=== PATIENT | male | born 1965 | race Caucasian/White ===

== ENCOUNTER 2016-12-02 13:28 | Inpatient (IN) | payer MEDICAID ==
[2016-12-02 14:02] LABS: MEAN CORPUSCULAR HEMOGLOBIN 29.6 pg (26.0-30.0); RED BLOOD COUNT 4.41 Mil/cmm (4.30-5.70)
[2016-12-02 14:04] LABS: HEMATOCRIT 38.9 % (41.0-60); HEMOGLOBIN 13.1 gm/dL (12-16); MEAN CORPUSCULAR HGB CONC 33.6 pg (28.0-36.0); MEAN PLATELET VOLUME 8.3 fl; PLATELET COUNT 342 Th/cmm (150-400); RED CELL DISTRIBUTION WIDTH 13.2 % (11.5-20.0)
[2016-12-02 14:06] LABS: WHITE BLOOD COUNT 18.6 Th/cmm (4.8-10.8)
[2016-12-02 14:11] LABS: INR 1.32 (0.5-1.4); PROTHROMBIN TIME (TEST) 13.9 SECONDS (9.5-11.5)
[2016-12-02 14:15] LABS: ALB/GLOB RATIO 0.7 (1.0-1.8); ALKALINE PHOSPHATASE 84 U/L (34-104); ANION GAP 8.3 (7.0-16.0); BILIRUBIN,TOTAL 0.7 mg/dL (0.3-1.0); BUN - UREA NITROGEN 8 mg/dL (7-25); BUN/CREATININE RATIO 11.4; CALCIUM SERUM 8.7 mg/dL (8.6-10.3); CHLORIDE 100 mEq/L (98-107); CREATININE - SERUM 0.7 mg/dL (0.7-1.3); GLUCOSE 121 mg/dL (70-105); POTASSIUM SERUM 3.3 mEq/L (3.5-5.1); SGOT 52 U/L (13-39); SGPT/ALT 47 U/L (7-52); SODIUM SERUM 130 mEq/L (136-145)
[2016-12-02] MEDS ORDERED: Potassium Chloride Elixir 20 mEq /15 mL UDC PO ONE (14:28)
[2016-12-02] MEDS ORDERED: Potassium Chloride Elixir 20 mEq /15 mL UDC ONE (14:29)
[2016-12-02 14:35] LABS: CHOLESTEROL 117 mg/dL (<200); TRIGLYCERIDES 104 mg/dL (<150)
[2016-12-02 14:36] LABS: NEUTROPHILS 81 % (40-80); PLATELET ESTIMATE ADEQUATE (NORMAL); TOTAL CELLS COUNTED 100
[2016-12-02 15:15] LABS: AMPHETAMINE URINE NEGATIVE (NEGATIVE); BARBITURATES URINE NEGATIVE (NEGATIVE); METHADONE URINE NEGATIVE (NEGATIVE)
[2016-12-02 15:24] LABS: URINE BILIRUBIN NEGATIVE (NEGATIVE); URINE BLOOD NEGATIVE (NEGATIVE); URINE GLUCOSE (UA) NEGATIVE (NEGATIVE); URINE KETONE NEGATIVE (NEGATIVE); URINE PH 6.5 (4.6 - 8.0); URINE PROTEIN NEGATIVE (NEGATIVE)
[2016-12-02] MEDS ORDERED: Sodium Chloride 0.45% 1,000 ML IV ONE (15:28)
[2016-12-02 15:33] LABS: URINE AMORPHOUS SEDIMENT FEW URATES (NONE SEEN); URINE BACTERIA OCCASIONAL /hpf (NONE SEEN); URINE COLOR YELLOW; URINE EPITHELIAL CELLS RARE /lpf (FEW); URINE RBC NONE SEEN /hpf (0-5); URINE WBC 0-2 /hpf (0-5)
--- NOTE | 2016-12-02 15:36 | ED Physician Chart ---
ED Chief Complaint/HPI - Patient Information Date Seen:: 12/02/16 Time Seen:: 14:00 Chief Complaint:: HERNIA PAIN History of Present Illness:: THIS IS A 51 YR OLD WHO IS CONCERNED ABOUT ABOUT HIS HERNIA PAIN AND FEVER. HE DENIES NAUSEA AND VOMITING. HE DENIES DIARRHEA AND CONSTIPATION. HE HAS HAD THIS HERNIA FOR SEVERAL MONTHS. HE HAS NOT BEEN ABLE TO SLEEP. HE ADMITS SMOKING AND ALCOHOL BUT DENIES DRUG ILLEGAL DRUGS. Allergies:: Allergies Allergy/AdvReac Type Severity Reaction Status Date / Time No Known Allergies Allergy Verified 12/02/16 13:47 Vitals:: Vital Signs - 8 hr 12/02/16 13:48 Temp 100.5 F HR 116 RR 18 BP 129/77 O2 Sat % 97 Historian:: Patient Review:: Nurse's Note Reviewed ED Review of Systems - Review of Systems General/Constitutional: Fever, No chills, Weight loss, No weakness, No diaphoresis, No edema, No loss of appetite Skin: No skin lesions, No rash, No bruising Head: No headache, No light-headedness Eyes: No loss of vision, No pain, No diplopia ENT: No earache, No nasal drainage, No sore throat, No tinnitus Neck: No neck pain, No swelling, No thyromegaly, No stiffness, No mass noted Cardio Vascular: No chest pain, No palpitations, No PND, No orthopnea, No edema Pulmonary: No SOB, No cough, No sputum, No wheezing GI: No nausea, No vomiting, No diarrhea, Pain, No melena, No hematochezia, No constipation, No hematemesis G/U: No dysuria, No frequency, No hematuria Musculoskeletal: No bone or joint pain, No back pain, No muscle pain Endocrine: No polyuria, No polydipsia Psychiatric: No prior psych history, No depression, No anxiety, No suicidal ideation Hematopoietic: No bruising, No lymphadenopathy Allergic/Immuno: No urticaria, No angioedema Neurological: No syncope, No focal symptoms, No weakness, No paresthesia, No headache, No seizure, No dizziness, No confusion, No vertigo ED Past Medical History - Past Medical History Obtainable: Yes Past Medical History: No significant medical hx Family History: None Social History: Smoker, Alcohol, No Drug Use, Employed Surgical History: None Psychiatricy History: None Medication: Reviewed Family Medical History - Family Member Mother History Unknown: Yes ED Physical Exam - Physical Examination General/Constitutional: Awake, Well-developed, well-nourished, Alert, No distress, GCS 15, Non-toxic appearing, Ambulatory Head: Atraumatic Eyes: Lids, conjuctiva normal, PERRL, EOMI Skin: Nl inspection, No rash, No skin lesions, No ecchymosis, Well hydrated, No lymphadenopathy ENMT: External ears, nose nl, Nasal exam nl, Lips, teeth, gums nl Neck: Nontender, Full ROM w/o pain, No JVD, No nuchal rigidity, No bruit, No mass, No stridor Respiratory: Nl effort/Exclusion, Clear to Auscultation, No Wheeze/Rhonchi/Rales Cardio Vascular: RRR, No murmur, gallop, rubs, NL S1 S2 GI: No tenderness/rebounding/guarding, No organomegaly, Normal BS's, Nondistended, No mass/bruits, No McBurney tenderness Other GI comments:: THERE IS A REDUCIBLE LEFT INGUINAL HERNIA ABOUT 7 CM IN SIZE. : No CVA tenderness Extremities: No tenderness or effusion, Full ROM, normal strength in all extremities, No edema, Normal digits & nails Neuro/Psych: Alert/oriented, DTR's symmetric, Normal sensory exam, Normal motor strength, Judgement/insight normal, Mood normal, Normal gait, No focal deficits Misc: normal gait, Normal back, No paraspinal tenderness ED Labs/Radiology/EKG Results - Lab Results Results: Laboratory Tests 12/02/16 12/02/16 12/02/16 13:50 13:50 13:50 WBC 18.6 H RBC 4.41 Hgb 13.1 Hct 38.9 L MCV 88.0 MCH 29.6 MCHC Differential 33.6 RDW 13.2 Plt Count 342 MPV 8.3 Neutrophils (Manual) 81 H Lymphocytes 6 L Monocytes 13 H Platelet Estimate ADEQUATE PT 13.9 H INR 1.32 PTT (Actin FS) 27.1 Sodium Potassium Chloride Carbon Dioxide Anion Gap BUN Creatinine Est GFR ( Amer) Est GFR (Non-Af Amer) BUN/Creatinine Ratio Glucose Whole Bld Lactic Acid Calcium Total Bilirubin AST ALT Alkaline Phosphatase Troponin I Total Protein Albumin Globulin Albumin/Globulin Ratio Triglycerides 104 Cholesterol 117 LDL Cholesterol Direct 94 HDL Cholesterol 19 L TSH Urine Opiates Screen Urine Methadone Screen Ur Barbiturates Screen Ur Tricyclics Screen Ur Phencyclidine Scrn Amphetamines Screen U Methamphetamines Scrn U Benzodiazepines Scrn U Cocaine Metab Screen U Cannabinoids Screen 12/02/16 12/02/16 12/02/16 13:50 13:50 13:50 WBC RBC Hgb Hct MCV MCH MCHC Differential RDW Plt Count MPV Neutrophils (Manual) Lymphocytes Monocytes Platelet Estimate PT INR PTT (Actin FS) Sodium 130 L Potassium 3.3 L Chloride 100 Carbon Dioxide 25.0 Anion Gap 8.3 BUN 8 Creatinine 0.7 Est GFR ( Amer) > 60.0 Est GFR (Non-Af Amer) > 60.0 BUN/Creatinine Ratio 11.4 Glucose 121 H Whole Bld Lactic Acid Calcium 8.7 Total Bilirubin 0.7 AST 52 H ALT 47 Alkaline Phosphatase 84 Troponin I < 0.01 L Total Protein 7.3 Albumin 3.1 L Globulin 4.2 Albumin/Globulin Ratio 0.7 L Triglycerides Cholesterol LDL Cholesterol Direct HDL Cholesterol TSH 1.59 Urine Opiates Screen Urine Methadone Screen Ur Barbiturates Screen Ur Tricyclics Screen Ur Phencyclidine Scrn Amphetamines Screen U Methamphetamines Scrn U Benzodiazepines Scrn U Cocaine Metab Screen U Cannabinoids Screen 12/02/16 12/02/16 13:50 14:30 WBC RBC Hgb Hct MCV MCH MCHC Differential RDW Plt Count MPV Neutrophils (Manual) Lymphocytes Monocytes Platelet Estimate PT INR PTT (Actin FS) Sodium Potassium Chloride Carbon Dioxide Anion Gap BUN Creatinine Est GFR ( Amer) Est GFR (Non-Af Amer) BUN/Creatinine Ratio Glucose Whole Bld Lactic Acid 0.79 Calcium Total Bilirubin AST ALT Alkaline Phosphatase Troponin I Total Protein Albumin Globulin Albumin/Globulin Ratio Triglycerides Cholesterol LDL Cholesterol Direct HDL Cholesterol TSH Urine Opiates Screen NEGATIVE Urine Methadone Screen NEGATIVE Ur Barbiturates Screen NEGATIVE Ur Tricyclics Screen NEGATIVE Ur Phencyclidine Scrn NEGATIVE Amphetamines Screen NEGATIVE U Methamphetamines Scrn NEGATIVE U Benzodiazepines Scrn NEGATIVE U Cocaine Metab Screen NEGATIVE U Cannabinoids Screen NEGATIVE ED Assessment - Assessment General Assessment: LEFT INGUINAL HERNIA FEVER ED Septic Shock - . Is Septic Shock (SBP<90, OR Lactate>4 mmol\L) present?: No - <6hrs of presentation: Vital Signs: Vital Signs - 8 hr 12/02/16 13:48 Temp 100.5 F HR 116 RR 18 BP 129/77 O2 Sat % 97 ED Reassessment (Disposition) - Reassessment Reassessment Condition:: Improved - Diagnosis Diagnosis:: INCARCERATED LEFT INGUINAL HERNIA FEVER - Patient Disposition Discharge/Transfer:: Acute Care w/in this hosp Admitting Medical Physician:: Perico Cee Condition at Disposition:: Improved ED Discharge Plan - Patient Disposition Admit/Discharge/Transfer: Acute Care w/in this hosp Condition at Disposition: Improved
[2016-12-02] MEDS ORDERED: IOHEXOL 300MG/ML 100 ML VIAL PO ONE (16:57)
[2016-12-02] MEDS: cefTRIAXone 1 GM in Sodium Chloride 0.9% 50 ML IV SCH (18:32)
[2016-12-02] MEDS: D5-0.9%NS 1,000 ML IV SCH (19:02)
[2016-12-03 06:38] LABS: HEMOGLOBIN 12.8 gm/dL (12-16)
[2016-12-03 06:46] LABS: ALB/GLOB RATIO 0.7 (1.0-1.8); ALKALINE PHOSPHATASE 75 U/L (34-104); ANION GAP 7.6 (7.0-16.0); BILIRUBIN,TOTAL 0.6 mg/dL (0.3-1.0); BUN - UREA NITROGEN 6 mg/dL (7-25); BUN/CREATININE RATIO 8.6; CALCIUM SERUM 8.3 mg/dL (8.6-10.3); CARBON DIOXIDE 24.8 mEq/L (21.0-31.0); CHLORIDE 101 mEq/L (98-107); CREATININE - SERUM 0.7 mg/dL (0.7-1.3); GLUCOSE 98 mg/dL (70-105); POTASSIUM SERUM 3.4 mEq/L (3.5-5.1); SGOT 47 U/L (13-39); SGPT/ALT 40 U/L (7-52); SODIUM SERUM 130 mEq/L (136-145)
[2016-12-03 06:53] LABS: HEMATOCRIT 37.6 % (41.0-60); MEAN CELL VOLUME 87.9 fl (80-99); MEAN CORPUSCULAR HEMOGLOBIN 30.1 pg (26.0-30.0); MEAN CORPUSCULAR HGB CONC 34.2 pg (28.0-36.0); MEAN PLATELET VOLUME 9.2 fl; PLATELET COUNT 319 Th/cmm (150-400); RED BLOOD COUNT 4.27 Mil/cmm (4.30-5.70); RED CELL DISTRIBUTION WIDTH 13.5 % (11.5-20.0)
[2016-12-03 07:53] LABS: BAND NEUTROPHILE 1 % (0-10); NEUTROPHILS 86 % (40-80); TOTAL CELLS COUNTED 100; WHITE BLOOD COUNT 16.7 Th/cmm (4.8-10.8)
[2016-12-03] MEDS ORDERED: Potassium Phosphate 20 MMOLE in Sodium Chloride 0.9% 250 ML IV ONE (07:59)
[2016-12-03] MEDS ORDERED: Levofloxacin 750mg/150mL 750 MG/150 ML BAG IV ONE (08:00)
[2016-12-03] MEDS ORDERED: KCL 20mEq/100mL Premix 20 MEQ/100 ML PIGGYBACK IV ONE (08:11)
--- NOTE | 2016-12-03 08:11 | History and Physical ---
History of Present Illness - HPI Chief Complaint: abdominal pain HPI: 51 year old male who presents to [facility] for abdominal pain. He denies nausea and vomiting. He denies diarrhea and constipation. He states that he has had a hernia for the past several months. He is unable to sleep at night. He admits to smoking and alcohol intake. No illegal drugs. Vital Signs: Last Vital Signs Temp 98.6 F 12/03/16 00:00 Pulse 93 12/03/16 04:02 Resp 19 12/03/16 04:02 BP 109/61 12/03/16 04:02 Pulse Ox 99 12/03/16 04:02 Past Medical History Cardiovascular: Report: No Pertinent Hx Pulmonary: Report: No Pertinent Hx LANDSCAPER: Report: No Pertinent Hx GI: Report: No Pertinent Hx Psych: Report: No Pertinent Hx Musculoskeletal: Report: No Pertinent Hx Rheumatologic: Report: No pertinent Hx Infectious Disease: Report: No Pertinent Hx Renal/: Report: No Pertinent Hx Endocrine: Report: No Pertinent Hx Dermatology: Report: No Pertinent Hx - Past Surgical History Past Surgical History: No pertinent Hx Family Medical History - Family Member Mother History Unknown: Yes Ethnicity: Non- Hx Family Cancer: Yes (breast cancer) Hx Family Congestive Heart Failure: Yes Hx Family Hypertension: Yes Hx Family Stroke: Yes Social History Smoke: No Alcohol: None Drugs: None Lives: Alone - Medications Home Medications: Home Medication Medication Instructions Recorded Type NK [No Home Meds] 12/02/16 History - Allergies Allergies/Adverse Reactions: Allergies Allergy/AdvReac Type Severity Reaction Status Date / Time No Known Allergies Allergy Verified 12/02/16 13:47 Review of Systems - Review of Systems Constitutional: Report: Fever Eyes: Report: No Significant ENT: Report: No Significant Respiratory: Report: No Significant Cardiovascular: Report: No Significant Gastrointestinal: Report: Abdominal Pain. Denies: Nausea, Vomiting, Diarrhea, Constipation Genitourinary: Report: No Significant Musculoskeletal: Report: No Significant Skin: Report: No Significant Neurological: Report: No Significant Physical Exam - Physical Exam HEENT: Report: Ears Nose Throat within normal limits, Pharnyx within normal limits Neck: Report: Within normal limits Cardiovascular Systems: Report: +s1/s2 noted, Regular, Rate and Rhythm Respiratory: Report: Breath Sounds are within normal limits, Clear to Auscultation of lung hernandez Abdomen: Report: Tender to palpation Back: Report: Inspection of back is within normal limits. Extremities: Report: Non-tender to palpation. Skin: Report: Color of skin is within normal limits Neuro/Psych: Report: Mood affect is within normal limits, A+Ox3 - Lab Results All Lab Results last 24 hours: Laboratory Last Values WBC 16.7 Th/cmm (4.8-10.8) H 12/03/16 05:50 RBC 4.27 Mil/cmm (4.30-5.70) L 12/03/16 05:50 Hgb 12.8 gm/dL (12-16) 12/03/16 05:50 Hct 37.6 % (41.0-60) L 12/03/16 05:50 MCV 87.9 fl (80-99) 12/03/16 05:50 MCH 30.1 pg (26.0-30.0) H 12/03/16 05:50 MCHC Differential 34.2 pg (28.0-36.0) 12/03/16 05:50 RDW 13.5 % (11.5-20.0) 12/03/16 05:50 Plt Count 319 Th/cmm (150-400) 12/03/16 05:50 MPV 9.2 fl 12/03/16 05:50 Band Neutrophils % 1 % (0-10) 12/03/16 05:50 Neutrophils (Manual) 86 % (40-80) H 12/03/16 05:50 Lymphocytes 7 % (20-50) L 12/03/16 05:50 Monocytes 6 % (2-10) 12/03/16 05:50 Platelet Estimate ADEQUATE (NORMAL) 12/02/16 13:50 PT 13.9 SECONDS (9.5-11.5) H 12/02/16 13:50 INR 1.32 (0.5-1.4) 12/02/16 13:50 PTT (Actin FS) 27.1 SECONDS (26.0-38.0) 12/02/16 13:50 Sodium 130 mEq/L (136-145) L 12/03/16 05:50 Potassium 3.4 mEq/L (3.5-5.1) L 12/03/16 05:50 Chloride 101 mEq/L (98-107) 12/03/16 05:50 Carbon Dioxide 24.8 mEq/L (21.0-31.0) 12/03/16 05:50 Anion Gap 7.6 (7.0-16.0) 12/03/16 05:50 BUN 6 mg/dL (7-25) L 12/03/16 05:50 Creatinine 0.7 mg/dL (0.7-1.3) 12/03/16 05:50 Est GFR ( Amer) > 60.0 ml/min (>90) 12/03/16 05:50 Est GFR (Non-Af Amer) > 60.0 ml/min 12/03/16 05:50 BUN/Creatinine Ratio 8.6 12/03/16 05:50 Glucose 98 mg/dL (70-105) 12/03/16 05:50 POC Glucose 90 MG/DL (70 - 105) 12/02/16 17:19 Whole Bld Lactic Acid 0.79 mmol/L (0.60-1.99) 12/02/16 13:50 Calcium 8.3 mg/dL (8.6-10.3) L 12/03/16 05:50 Total Bilirubin 0.6 mg/dL (0.3-1.0) 12/03/16 05:50 AST 47 U/L (13-39) H 12/03/16 05:50 ALT 40 U/L (7-52) 12/03/16 05:50 Alkaline Phosphatase 75 U/L (34-104) 12/03/16 05:50 Troponin I < 0.01 ng/mL (0.01-0.05) L 12/02/16 13:50 Total Protein 6.8 gm/dL (6.0-8.3) 12/03/16 05:50 Albumin 2.8 gm/dL (4.2-5.5) L 12/03/16 05:50 Globulin 4.0 gm/dL 12/03/16 05:50 Albumin/Globulin Ratio 0.7 (1.0-1.8) L 12/03/16 05:50 Triglycerides 104 mg/dL (<150) 12/02/16 13:50 Cholesterol 117 mg/dL (<200) 12/02/16 13:50 LDL Cholesterol Direct 94 mg/dL (75-193) 12/02/16 13:50 HDL Cholesterol 19 mg/dL (23-92) L 12/02/16 13:50 TSH 1.59 uIU/ml (0.34-5.60) 12/02/16 13:50 Urine Source CLEAN C 12/02/16 14:30 Urine Color YELLOW 12/02/16 14:30 Urine Clarity CLEAR (CLEAR) 12/02/16 14:30 Urine pH 6.5 (4.6 - 8.0) 12/02/16 14:30 Ur Specific [place] 1.015 (1.005-1.030) 12/02/16 14:30 Urine Protein NEGATIVE mg/dL (NEGATIVE) 12/02/16 14:30 Urine Glucose (UA) NEGATIVE mg/dL (NEGATIVE) 12/02/16 14:30 Urine Ketones NEGATIVE mg/dL (NEGATIVE) 12/02/16 14:30 Urine Blood NEGATIVE (NEGATIVE) 12/02/16 14:30 Urine Nitrate NEGATIVE (NEGATIVE) 12/02/16 14:30 Urine Bilirubin NEGATIVE (NEGATIVE) 12/02/16 14:30 Urine Urobilinogen 4.0 E.U./dL (0.2 - 1.0) H 12/02/16 14:30 Ur Leukocyte Esterase NEGATIVE (NEGATIVE) 12/02/16 14:30 Urine RBC NONE SEEN /hpf (0-5) 12/02/16 14:30 Urine WBC 0-2 /hpf (0-5) 12/02/16 14:30 Ur Epithelial Cells RARE /lpf (FEW) 12/02/16 14:30 Amorphous Sediment FEW URATES (NONE SEEN) 12/02/16 14:30 Urine Bacteria OCCASIONAL /hpf (NONE SEEN) 12/02/16 14:30 Urine Opiates Screen NEGATIVE (NEGATIVE) 12/02/16 14:30 Urine Methadone Screen NEGATIVE (NEGATIVE) 12/02/16 14:30 Ur Barbiturates Screen NEGATIVE (NEGATIVE) 12/02/16 14:30 Ur Tricyclics Screen NEGATIVE (NEGATIVE) 12/02/16 14:30 Ur Phencyclidine Scrn NEGATIVE (NEGATIVE) 12/02/16 14:30 Amphetamines Screen NEGATIVE (NEGATIVE) 12/02/16 14:30 U Methamphetamines Scrn NEGATIVE (NEGATIVE) 12/02/16 14:30 U Benzodiazepines Scrn NEGATIVE (NEGATIVE) 12/02/16 14:30 U Cocaine Metab Screen NEGATIVE (NEGATIVE) 12/02/16 14:30 U Cannabinoids Screen NEGATIVE (NEGATIVE) 12/02/16 14:30 RPR NONREACTIVE (NONREACTIVE) 12/02/16 13:50 Laboratory Results - last 24 hr 12/02/16 12/03/16 12/03/16 17:19 05:50 05:50 WBC 16.7 H RBC 4.27 L Hgb 12.8 Hct 37.6 L MCV 87.9 MCH 30.1 H MCHC Differential 34.2 RDW 13.5 Plt Count 319 MPV 9.2 Band Neutrophils % 1 Neutrophils (Manual) 86 H Lymphocytes 7 L Monocytes 6 Sodium 130 L Potassium 3.4 L Chloride 101 Carbon Dioxide 24.8 Anion Gap 7.6 BUN 6 L Creatinine 0.7 Est GFR ( Amer) > 60.0 Est GFR (Non-Af Amer) > 60.0 BUN/Creatinine Ratio 8.6 Glucose 98 POC Glucose 90 Calcium 8.3 L Total Bilirubin 0.6 AST 47 H ALT 40 Alkaline Phosphatase 75 Total Protein 6.8 Albumin 2.8 L Globulin 4.0 Albumin/Globulin Ratio 0.7 L - Assessment Assessment: Current Active Problems Problem Status Onset LEFT LOWER ABDOMINAL PAIN Acute abdominal pain secondary to incarcerated hernia ... general surgical consult with Dr. Jarquin, leukocytosis...on IV levoquin hypokalemia ... on IV Krider 40meq - Plan Plan: abdominal pain secondary to incarcerated hernia ... general surgical consult with Dr. Jarquin, leukocytosis...on IV levoquin hypokalemia ... on IV Krider 40meq
--- NOTE | 2016-12-03 08:19 | Diagnostic Imaging Report ---
CT examination of the pelvis HISTORY: Pain Total DLP equals 330 CTDI equals 7.8 Findings: Multiple contiguous thin section of the abdomen pelvis obtained from lower thorax to pubic symphysis with administration of intravenous contrast material. No prior studies available comparison. Findings The study demonstrates normal aeration lung parenchyma the bases There is evidence of for 1 cm right lower lobe nodularity, neoplastic metastatic process cannot be excluded clinical correlation and CT examination of chest is recommended. The liver parenchyma demonstrates normal enhancement pattern. There is evidence for a ill-defined lucency within enhancement border which might represent hemangioma in the right lobe of liver. Another small lucency is noted in the left lobe of liver might represent a cyst although neoplastic component cannot be excluded. Clinical correlation is recommended. The gallbladder is intact. The spleen is normal. Diffuse calcification of of the splenic artery is noted. The adrenal glands are intact. The kidneys concentrate and excrete contrast material normal fashion. There is a large amount of fecal content throughout the colon indicating fecal impaction with distention of proximal small bowel loops. Diffuse atherosclerotic process is noted in distal abdominal aorta and iliac vessels. There is evidence for a large left inguinal hernia containing most likely a segment of sigmoid colon with partial strangulation There is evidence for thickening of the rectosigmoid junction in the wall of rectum Breast content cannot be excluded. Direct visualization recommended. The urinary bladder is intact. Bony structures demonstrate no evidence for lytic or blastic lesions. IMPRESSION: 1. 1 cm right lower lobe lung nodularity clinical correlation and CT examination of chest A. 2. Most likely small hemangioma in the right lobe of liver. 3. Most likely partially incarcerated left inguinal hernia containing sigmoid colon. Proximal distention of colon with fecal content as well as distended small bowel loops mild ileus 4. Ill-defined thickening of rectosigmoid junction and the rectum, neoplastic component is highly considered clinical correlation and direct visualization recommended.
[2016-12-03] MEDS ORDERED: Meperidine 25 mg/mL 1mL Syr IVP PRN (11:34)
[2016-12-03] MEDS ORDERED: Lactated Ringer 1,000 ML IV SCH (11:45)
[2016-12-03] MEDS ORDERED: Bupivacaine 0.75% 10 mL Vial INJ ONE (13:45)
[2016-12-03] MEDS ORDERED: Meperidine 25 mg/mL 1mL Syr ONE (15:17)
--- NOTE | 2016-12-03 16:52 | Operative Report ---
DATE OF SURGERY: 12/03/2016 PREOPERATIVE DIAGNOSES: 1. Left inguinal hernia, incarcerated. 2. Right inguinal hernia, likely direct. POSTOPERATIVE DIAGNOSES: 1. Left inguinal hernia, incarcerated. 2. Right inguinal hernia, likely direct. OPERATION DONE: 1. Repair of left indirect inguinal hernia with PerFix plug (median size). 2. Repair of a direct inguinal hernia, left side. 3. Repair of right direct inguinal hernia. SURGEON: Jody Jarquin M.D. ANESTHESIA: Spinal. ANESTHESIOLOGIST: Tonio Landaverde M.D. ESTIMATED BLOOD LOSS: 90 mL. OPERATIVE FINDINGS: Both direct and indirect inguinal hernia on the left side and a direct hernia on the right side. DESCRIPTION OF PROCEDURE: The patient was given spinal anesthesia. The abdomen and genitalia were prepped with Betadine and draped in appropriate manner. An incision was made in the left groin along the skin line. Bleeders were coagulated. The cord was identified and isolated. A large indirect sac was found. This was dissected free from the cord. A medium sized PerFix plug was sutured on 4 sides of the internal inguinal ring utilizing #1 nylon. This effectively repaired the indirect hernia on this side. The transversalis and Kendrick's ligament were sutured together with #1 nylon with relaxing incision at the rectus fascia medially. On the right side, this was explored and the pathology was identified and repaired as on the left side. Skin was closed with subcuticular suture of 4-0 Vicryl. JOB# [id number]
--- NOTE | 2016-12-03 16:57 | Consultation ---
DATE OF CONSULTATION: 12/03/2016 REFERRING PHYSICIAN: Dr. Cee. REASON FOR CONSULTATION: Left inguinal pain. Thank you for referring this patient to me. HISTORY OF PRESENT ILLNESS: This is a 51-year-old male who comes in through ER because of abdominal pain. Pain is mostly in the left groin. He claims that he has been having this for several months and some that he is unable to sleep at night. He does admit to smoking and alcohol intake. The CT scan of the abdomen showed 1 cm right lower lobe lung irregularity, small hemangioma in the right lobe of the liver, incarcerated left inguinal hernia containing sigmoid colon and ill-defined thickening of the sigmoid junction in the rectum. PHYSICAL EXAMINATION: There is tenderness in the left groin with a definite hernia present, right side also presents, what appears to be a hernia on coughing. RECOMMENDATIONS: Suggest repair of the hernia and explore the right side as well. [facility]# [id number]
[2016-12-03] MEDS: D5-0.9%NS 1,000 ML IV SCH (17:03)
[2016-12-03] MEDS: cefTRIAXone 1 GM in Sodium Chloride 0.9% 50 ML IV SCH (17:04)
[2016-12-04 06:22] LABS: HEMATOCRIT 36.5 % (41.0-60); HEMOGLOBIN 12.4 gm/dL (12-16); MEAN CELL VOLUME 88.1 fl (80-99); MEAN PLATELET VOLUME 9.3 fl; PLATELET COUNT 280 Th/cmm (150-400); RED BLOOD COUNT 4.15 Mil/cmm (4.30-5.70); RED CELL DISTRIBUTION WIDTH 13.2 % (11.5-20.0)
[2016-12-04 06:27] LABS: WHITE BLOOD COUNT 19.2 Th/cmm (4.8-10.8)
[2016-12-04 06:40] LABS: ALB/GLOB RATIO 0.7 (1.0-1.8); ALKALINE PHOSPHATASE 68 U/L (34-104); ANION GAP 8.9 (7.0-16.0); BILIRUBIN,TOTAL 0.5 mg/dL (0.3-1.0); BUN - UREA NITROGEN 6 mg/dL (7-25); CALCIUM SERUM 7.9 mg/dL (8.6-10.3); CARBON DIOXIDE 24.6 mEq/L (21.0-31.0); CHLORIDE 102 mEq/L (98-107); CREATININE - SERUM 0.6 mg/dL (0.7-1.3); GLUCOSE 135 mg/dL (70-105); POTASSIUM SERUM 3.5 mEq/L (3.5-5.1); SGOT 38 U/L (13-39); SGPT/ALT 32 U/L (7-52); SODIUM SERUM 132 mEq/L (136-145)
[2016-12-04 06:44] LABS: TOTAL CELLS COUNTED 100
[2016-12-04 06:47] LABS: BAND NEUTROPHILE 2 % (0-10); EOSINOPHIL 1 % (0-5); NEUTROPHILS 81 % (40-80)
--- NOTE | 2016-12-04 08:09 | General Progress Note ---
Subjective - Review of Systems Service Date: 12/04/16 Subjective: Awake,alert,afebrile. no acute distress. POD#1 S/P bilateral inguinal hernia repair. Objective - Results Result Diagrams: 12/04/16 05:25 12/04/16 05:25 Recent Labs: Laboratory Last Values WBC 19.2 Th/cmm (4.8-10.8) H 12/04/16 05:25 RBC 4.15 Mil/cmm (4.30-5.70) L 12/04/16 05:25 Hgb 12.4 gm/dL (12-16) 12/04/16 05:25 Hct 36.5 % (41.0-60) L 12/04/16 05:25 MCV 88.1 fl (80-99) 12/04/16 05:25 MCH 30.0 pg (26.0-30.0) 12/04/16 05:25 MCHC Differential 34.0 pg (28.0-36.0) 12/04/16 05:25 RDW 13.2 % (11.5-20.0) 12/04/16 05:25 Plt Count 280 Th/cmm (150-400) 12/04/16 05:25 MPV 9.3 fl 12/04/16 05:25 Band Neutrophils % 2 % (0-10) 12/04/16 05:25 Neutrophils (Manual) 81 % (40-80) H 12/04/16 05:25 Lymphocytes 6 % (20-50) L 12/04/16 05:25 Monocytes 10 % (2-10) 12/04/16 05:25 Eosinophils 1 % (0-5) 12/04/16 05:25 Platelet Estimate ADEQUATE (NORMAL) 12/02/16 13:50 PT 13.9 SECONDS (9.5-11.5) H 12/02/16 13:50 INR 1.32 (0.5-1.4) 12/02/16 13:50 PTT (Actin FS) 27.1 SECONDS (26.0-38.0) 12/02/16 13:50 Sodium 132 mEq/L (136-145) L 12/04/16 05:25 Potassium 3.5 mEq/L (3.5-5.1) 12/04/16 05:25 Chloride 102 mEq/L (98-107) 12/04/16 05:25 Carbon Dioxide 24.6 mEq/L (21.0-31.0) 12/04/16 05:25 Anion Gap 8.9 (7.0-16.0) 12/04/16 05:25 BUN 6 mg/dL (7-25) L 12/04/16 05:25 Creatinine 0.6 mg/dL (0.7-1.3) L 12/04/16 05:25 Est GFR ( Amer) > 60.0 ml/min (>90) 12/04/16 05:25 Est GFR (Non-Af Amer) > 60.0 ml/min 12/04/16 05:25 BUN/Creatinine Ratio 10.0 12/04/16 05:25 Glucose 135 mg/dL (70-105) H 12/04/16 05:25 POC Glucose 90 MG/DL (70 - 105) 12/02/16 17:19 Whole Bld Lactic Acid 0.79 mmol/L (0.60-1.99) 12/02/16 13:50 Calcium 7.9 mg/dL (8.6-10.3) L 12/04/16 05:25 Total Bilirubin 0.5 mg/dL (0.3-1.0) 12/04/16 05:25 AST 38 U/L (13-39) 12/04/16 05:25 ALT 32 U/L (7-52) 12/04/16 05:25 Alkaline Phosphatase 68 U/L (34-104) 12/04/16 05:25 Troponin I < 0.01 ng/mL (0.01-0.05) L 12/02/16 13:50 Total Protein 6.3 gm/dL (6.0-8.3) 12/04/16 05:25 Albumin 2.5 gm/dL (4.2-5.5) L 12/04/16 05:25 Globulin 3.8 gm/dL 12/04/16 05:25 Albumin/Globulin Ratio 0.7 (1.0-1.8) L 12/04/16 05:25 Triglycerides 104 mg/dL (<150) 12/02/16 13:50 Cholesterol 117 mg/dL (<200) 12/02/16 13:50 LDL Cholesterol Direct 94 mg/dL (75-193) 12/02/16 13:50 HDL Cholesterol 19 mg/dL (23-92) L 12/02/16 13:50 TSH 1.59 uIU/ml (0.34-5.60) 12/02/16 13:50 Urine Source CLEAN C 12/02/16 14:30 Urine Color YELLOW 12/02/16 14:30 Urine Clarity CLEAR (CLEAR) 12/02/16 14:30 Urine pH 6.5 (4.6 - 8.0) 12/02/16 14:30 Ur Specific [place] 1.015 (1.005-1.030) 12/02/16 14:30 Urine Protein NEGATIVE mg/dL (NEGATIVE) 12/02/16 14:30 Urine Glucose (UA) NEGATIVE mg/dL (NEGATIVE) 12/02/16 14:30 Urine Ketones NEGATIVE mg/dL (NEGATIVE) 12/02/16 14:30 Urine Blood NEGATIVE (NEGATIVE) 12/02/16 14:30 Urine Nitrate NEGATIVE (NEGATIVE) 12/02/16 14:30 Urine Bilirubin NEGATIVE (NEGATIVE) 12/02/16 14:30 Urine Urobilinogen 4.0 E.U./dL (0.2 - 1.0) H 12/02/16 14:30 Ur Leukocyte Esterase NEGATIVE (NEGATIVE) 12/02/16 14:30 Urine RBC NONE SEEN /hpf (0-5) 12/02/16 14:30 Urine WBC 0-2 /hpf (0-5) 12/02/16 14:30 Ur Epithelial Cells RARE /lpf (FEW) 12/02/16 14:30 Amorphous Sediment FEW URATES (NONE SEEN) 12/02/16 14:30 Urine Bacteria OCCASIONAL /hpf (NONE SEEN) 12/02/16 14:30 Urine Opiates Screen NEGATIVE (NEGATIVE) 12/02/16 14:30 Urine Methadone Screen NEGATIVE (NEGATIVE) 12/02/16 14:30 Ur Barbiturates Screen NEGATIVE (NEGATIVE) 12/02/16 14:30 Ur Tricyclics Screen NEGATIVE (NEGATIVE) 12/02/16 14:30 Ur Phencyclidine Scrn NEGATIVE (NEGATIVE) 12/02/16 14:30 Amphetamines Screen NEGATIVE (NEGATIVE) 12/02/16 14:30 U Methamphetamines Scrn NEGATIVE (NEGATIVE) 12/02/16 14:30 U Benzodiazepines Scrn NEGATIVE (NEGATIVE) 12/02/16 14:30 U Cocaine Metab Screen NEGATIVE (NEGATIVE) 12/02/16 14:30 U Cannabinoids Screen NEGATIVE (NEGATIVE) 12/02/16 14:30 RPR NONREACTIVE (NONREACTIVE) 12/02/16 13:50 Blood Type A POSITIVE 12/03/16 06:00 Antibody Screen NEGATIVE 12/03/16 06:00 - Physical Exam Vitals and I&O: Vital Signs Temp 99 F 12/03/16 20:00 Pulse 104 12/03/16 20:00 Resp 18 12/03/16 20:00 BP 116/71 12/03/16 20:00 Pulse Ox 100 12/03/16 20:00 Intake & Output 12/03/16 12/04/16 12/04/16 18:59 06:59 18:59 Intake Total 1250 200 Output Total 0 Balance 1250 200 Weight (lbs) 54.431 kg 54.431 kg Intake: Intake, IV Amount 1000 D5-0.9%Ns 1,000 ml @ 50 1000 mls/hr IV .Q20H [facility] Rx#: [id number] Oral 250 200 Output: Urine/Stool Mix 0 Other: # Voids 3 # Bowel Movements 0 0 Stool Characteristics Soft Active Medications: Current Medications Acetaminophen/Hydrocodone Bitart ([place] 5mg/325mg) 1 tab PO Q8H PRN PRN Reason: Anesthesia Stop: 01/31/17 18:56 Ceftriaxone Sodium 1 gm/ (Sodium Chloride) 50 mls @ 100 mls/hr IV Q24HR [facility] Stop: 01/31/17 16:59 Last Admin: 12/03/16 17:04 Dose: 100 mls/hr Dextrose/Sodium Chloride (D5-0.9%Ns) 1,000 mls @ 50 mls/hr IV .Q20H [facility] Stop: 01/31/17 18:59 Last Admin: 12/03/16 17:03 Dose: 50 mls/hr Ondansetron HCl (Zofran) 4 mg IV UD PRN PRN Reason: Nausea / Vomiting Stop: 02/01/17 11:33 General: Alert, Oriented x3, No acute distress HEENT: Atraumatic, PERRLA, EOMI Neck: Supple, JVD Cardiovascular: Regular rate, Normal S1, Normal S2 Lungs: Clear to auscultation Abdomen: Bowel sounds Extremities: no Clubbing, no Cyanosis, no Edema Neurological: Normal gait Assessment/Plan - Problem List Patient Problems: All Active Problems LEFT LOWER ABDOMINAL PAIN (Acute) - Assessment Assessment: Current Active Problems Problem Status Onset LEFT LOWER ABDOMINAL PAIN Acute abdominal pain secondary to incarcerated hernia s/p bilateral inguinal hernia repair h/o smoking .... leukocytosis...on IV levoquin, CXR hypokalemia ... on IV Krider 40meq - Plan Plan: abdominal pain secondary to incarcerated hernia s/p bilateral inguinal hernia repair leukocytosis...on IV levoquin hypokalemia ... on IV Krider 40meq
[2016-12-04] MEDS: Hydrocodone/APAP 5mg/325mg Tab PO PRN ×2 (08:36→16:42)
--- NOTE | 2016-12-04 09:42 | Diagnostic Imaging Report ---
CHEST X-RAY: AP view INDICATION: Congestion COMPARISON: None FINDINGS: Chronic interstitial lung changes are seen with no focal consolidation or effusions. There is no focal consolidation or pleural effusions The heart is normal in size. Degenerative changes of the spine are noted with mild scoliosis. IMPRESSION: Chronic interstitial lung changes. No focal consolidation identified.
[2016-12-04] MEDS: Levofloxacin 750mg/150mL 750 MG/150 ML BAG IV SCH (12:00)
[2016-12-04] MEDS ORDERED: Probiotic Screen MC PRN (15:38)
--- NOTE | 2016-12-04 16:33 | General Progress Note ---
Subjective - Review of Systems Service Date: 12/04/16 Events since last encounter: labs ok incisions clean may DC to come to my office 1 week no heavy lifting for 1 month Objective - Results Result Diagrams: 12/04/16 05:25 12/04/16 05:25 Recent Labs: Laboratory Last Values WBC 19.2 Th/cmm (4.8-10.8) H 12/04/16 05:25 RBC 4.15 Mil/cmm (4.30-5.70) L 12/04/16 05:25 Hgb 12.4 gm/dL (12-16) 12/04/16 05:25 Hct 36.5 % (41.0-60) L 12/04/16 05:25 MCV 88.1 fl (80-99) 12/04/16 05:25 MCH 30.0 pg (26.0-30.0) 12/04/16 05:25 MCHC Differential 34.0 pg (28.0-36.0) 12/04/16 05:25 RDW 13.2 % (11.5-20.0) 12/04/16 05:25 Plt Count 280 Th/cmm (150-400) 12/04/16 05:25 MPV 9.3 fl 12/04/16 05:25 Band Neutrophils % 2 % (0-10) 12/04/16 05:25 Neutrophils (Manual) 81 % (40-80) H 12/04/16 05:25 Lymphocytes 6 % (20-50) L 12/04/16 05:25 Monocytes 10 % (2-10) 12/04/16 05:25 Eosinophils 1 % (0-5) 12/04/16 05:25 Platelet Estimate ADEQUATE (NORMAL) 12/02/16 13:50 PT 13.9 SECONDS (9.5-11.5) H 12/02/16 13:50 INR 1.32 (0.5-1.4) 12/02/16 13:50 PTT (Actin FS) 27.1 SECONDS (26.0-38.0) 12/02/16 13:50 Sodium 132 mEq/L (136-145) L 12/04/16 05:25 Potassium 3.5 mEq/L (3.5-5.1) 12/04/16 05:25 Chloride 102 mEq/L (98-107) 12/04/16 05:25 Carbon Dioxide 24.6 mEq/L (21.0-31.0) 12/04/16 05:25 Anion Gap 8.9 (7.0-16.0) 12/04/16 05:25 BUN 6 mg/dL (7-25) L 12/04/16 05:25 Creatinine 0.6 mg/dL (0.7-1.3) L 12/04/16 05:25 Est GFR ( Amer) > 60.0 ml/min (>90) 12/04/16 05:25 Est GFR (Non-Af Amer) > 60.0 ml/min 12/04/16 05:25 BUN/Creatinine Ratio 10.0 12/04/16 05:25 Glucose 135 mg/dL (70-105) H 12/04/16 05:25 POC Glucose 90 MG/DL (70 - 105) 12/02/16 17:19 Whole Bld Lactic Acid 0.79 mmol/L (0.60-1.99) 12/02/16 13:50 Calcium 7.9 mg/dL (8.6-10.3) L 12/04/16 05:25 Total Bilirubin 0.5 mg/dL (0.3-1.0) 12/04/16 05:25 AST 38 U/L (13-39) 12/04/16 05:25 ALT 32 U/L (7-52) 12/04/16 05:25 Alkaline Phosphatase 68 U/L (34-104) 12/04/16 05:25 Troponin I < 0.01 ng/mL (0.01-0.05) L 12/02/16 13:50 Total Protein 6.3 gm/dL (6.0-8.3) 12/04/16 05:25 Albumin 2.5 gm/dL (4.2-5.5) L 12/04/16 05:25 Globulin 3.8 gm/dL 12/04/16 05:25 Albumin/Globulin Ratio 0.7 (1.0-1.8) L 12/04/16 05:25 Triglycerides 104 mg/dL (<150) 12/02/16 13:50 Cholesterol 117 mg/dL (<200) 12/02/16 13:50 LDL Cholesterol Direct 94 mg/dL (75-193) 12/02/16 13:50 HDL Cholesterol 19 mg/dL (23-92) L 12/02/16 13:50 TSH 1.59 uIU/ml (0.34-5.60) 12/02/16 13:50 Urine Source CLEAN C 12/02/16 14:30 Urine Color YELLOW 12/02/16 14:30 Urine Clarity CLEAR (CLEAR) 12/02/16 14:30 Urine pH 6.5 (4.6 - 8.0) 12/02/16 14:30 Ur Specific [place] 1.015 (1.005-1.030) 12/02/16 14:30 Urine Protein NEGATIVE mg/dL (NEGATIVE) 12/02/16 14:30 Urine Glucose (UA) NEGATIVE mg/dL (NEGATIVE) 12/02/16 14:30 Urine Ketones NEGATIVE mg/dL (NEGATIVE) 12/02/16 14:30 Urine Blood NEGATIVE (NEGATIVE) 12/02/16 14:30 Urine Nitrate NEGATIVE (NEGATIVE) 12/02/16 14:30 Urine Bilirubin NEGATIVE (NEGATIVE) 12/02/16 14:30 Urine Urobilinogen 4.0 E.U./dL (0.2 - 1.0) H 12/02/16 14:30 Ur Leukocyte Esterase NEGATIVE (NEGATIVE) 12/02/16 14:30 Urine RBC NONE SEEN /hpf (0-5) 12/02/16 14:30 Urine WBC 0-2 /hpf (0-5) 12/02/16 14:30 Ur Epithelial Cells RARE /lpf (FEW) 12/02/16 14:30 Amorphous Sediment FEW URATES (NONE SEEN) 12/02/16 14:30 Urine Bacteria OCCASIONAL /hpf (NONE SEEN) 12/02/16 14:30 Urine Opiates Screen NEGATIVE (NEGATIVE) 12/02/16 14:30 Urine Methadone Screen NEGATIVE (NEGATIVE) 12/02/16 14:30 Ur Barbiturates Screen NEGATIVE (NEGATIVE) 12/02/16 14:30 Ur Tricyclics Screen NEGATIVE (NEGATIVE) 12/02/16 14:30 Ur Phencyclidine Scrn NEGATIVE (NEGATIVE) 12/02/16 14:30 Amphetamines Screen NEGATIVE (NEGATIVE) 12/02/16 14:30 U Methamphetamines Scrn NEGATIVE (NEGATIVE) 12/02/16 14:30 U Benzodiazepines Scrn NEGATIVE (NEGATIVE) 12/02/16 14:30 U Cocaine Metab Screen NEGATIVE (NEGATIVE) 12/02/16 14:30 U Cannabinoids Screen NEGATIVE (NEGATIVE) 12/02/16 14:30 RPR NONREACTIVE (NONREACTIVE) 12/02/16 13:50 Blood Type A POSITIVE 12/03/16 06:00 Antibody Screen NEGATIVE 12/03/16 06:00 - Physical Exam Vitals and I&O: Vital Signs Temp 99.0 F 12/04/16 16:09 Pulse 106 12/04/16 16:09 Resp 18 12/04/16 16:09 BP 119/76 12/04/16 16:09 Pulse Ox 97 12/04/16 16:09 Intake & Output 12/03/16 12/04/16 12/04/16 18:59 06:59 18:59 Intake Total 1250 200 Output Total 0 0 Balance 1250 200 0 Weight (lbs) 54.431 kg 54.431 kg 54.431 kg Intake: Intake, IV Amount 1000 D5-0.9%Ns 1,000 ml @ 50 1000 mls/hr IV .Q20H [facility] Rx#: [id number] Oral 250 200 Output: Urine/Stool Mix 0 0 Other: # Voids 3 # Bowel Movements 0 0 0 Stool Characteristics Soft Soft Active Medications: Current Medications Acetaminophen/Hydrocodone Bitart ([place] 5mg/325mg) 1 tab PO Q8H PRN PRN Reason: Anesthesia Stop: 01/31/17 18:56 Last Admin: 12/04/16 08:36 Dose: 1 tab Dextrose/Sodium Chloride (D5-0.9%Ns) 1,000 mls @ 50 mls/hr IV .Q20H [facility] Stop: 01/31/17 18:59 Last Admin: 12/03/16 17:03 Dose: 50 mls/hr Levofloxacin (Levaquin Pb) 750 mg in 150 mls @ 100 mls/hr IV Q24HR [facility] Stop: 02/02/17 08:59 Lactobacillus Rhamnosus (Culturelle) 1 each PO DAILY [facility] Stop: 02/03/17 08:59 Miscellaneous (Probiotic Screen) 1 ea MC PRN PRN PRN Reason: PROTOCOL Stop: 02/02/17 15:37 Ondansetron HCl (Zofran) 4 mg IV UD PRN PRN Reason: Nausea / Vomiting Stop: 02/01/17 11:33 General: Alert, Oriented x3, No acute distress HEENT: Atraumatic, PERRLA, EOMI Neck: Supple, JVD Cardiovascular: Regular rate, Normal S1, Normal S2 Lungs: Clear to auscultation Abdomen: Bowel sounds Extremities: no Clubbing, no Cyanosis, no Edema Neurological: Normal gait - Procedures Procedures: Procedures Procedure Code Date PRP I/CELENA INIT BLOCK >5 YR 30941 12/02/16 SUPPLEMENT BI INGUINAL REGION WITH SYNTH SUB, OPEN APPROACH [id number] 12/02/16 Assessment/Plan - Problem List Patient Problems: All Active Problems LEFT LOWER ABDOMINAL PAIN (Acute)
[2016-12-04] MEDS: D5-0.9%NS 1,000 ML IV SCH (21:15)
[2016-12-05 06:13] LABS: HEMATOCRIT 35.2 % (41.0-60); HEMOGLOBIN 12.1 gm/dL (12-16); MEAN CELL VOLUME 88.3 fl (80-99); MEAN CORPUSCULAR HEMOGLOBIN 30.3 pg (26.0-30.0); MEAN CORPUSCULAR HGB CONC 34.3 pg (28.0-36.0); MEAN PLATELET VOLUME 8.7 fl; PLATELET COUNT 274 Th/cmm (150-400); RED BLOOD COUNT 3.98 Mil/cmm (4.30-5.70); RED CELL DISTRIBUTION WIDTH 13.1 % (11.5-20.0)
[2016-12-05 06:51] LABS: WHITE BLOOD COUNT 15.9 Th/cmm (4.8-10.8)
[2016-12-05 06:52] LABS: ALB/GLOB RATIO 0.7 (1.0-1.8); ALKALINE PHOSPHATASE 63 U/L (34-104); ANION GAP 8.1 (7.0-16.0); BILIRUBIN,TOTAL 0.4 mg/dL (0.3-1.0); BUN - UREA NITROGEN 7 mg/dL (7-25); CALCIUM SERUM 7.8 mg/dL (8.6-10.3); CARBON DIOXIDE 25.4 mEq/L (21.0-31.0); CHLORIDE 104 mEq/L (98-107); CREATININE - SERUM 0.5 mg/dL (0.7-1.3); GLUCOSE 125 mg/dL (70-105); POTASSIUM SERUM 3.5 mEq/L (3.5-5.1); SGOT 37 U/L (13-39); SGPT/ALT 30 U/L (7-52); SODIUM SERUM 134 mEq/L (136-145)
[2016-12-05] MEDS ORDERED: Albuterol Nebulizer 2.5mg/3mL HHN PRN (08:25)
[2016-12-05] MEDS ORDERED: Potassium Chloride 20 mEq ER Tab PO ONE (08:28)
--- NOTE | 2016-12-05 08:28 | General Progress Note ---
Subjective - Review of Systems Service Date: 12/05/16 Subjective: Awake,alert,afebrile. no acute distress. POD#1 S/P bilateral inguinal hernia repair. Patient still having elevated WBC's at 15k but improving on Levoquin IV. Objective - Results Result Diagrams: 12/05/16 05:26 12/05/16 05:26 Recent Labs: Laboratory Last Values WBC 15.9 Th/cmm (4.8-10.8) H 12/05/16 05:26 RBC 3.98 Mil/cmm (4.30-5.70) L 12/05/16 05:26 Hgb 12.1 gm/dL (12-16) 12/05/16 05:26 Hct 35.2 % (41.0-60) L 12/05/16 05:26 MCV 88.3 fl (80-99) 12/05/16 05:26 MCH 30.3 pg (26.0-30.0) H 12/05/16 05:26 MCHC Differential 34.3 pg (28.0-36.0) 12/05/16 05:26 RDW 13.1 % (11.5-20.0) 12/05/16 05:26 Plt Count 274 Th/cmm (150-400) 12/05/16 05:26 MPV 8.7 fl 12/05/16 05:26 Band Neutrophils % 2 % (0-10) 12/04/16 05:25 Neutrophils (Manual) 81 % (40-80) H 12/04/16 05:25 Lymphocytes 6 % (20-50) L 12/04/16 05:25 Monocytes 10 % (2-10) 12/04/16 05:25 Eosinophils 1 % (0-5) 12/04/16 05:25 Platelet Estimate ADEQUATE (NORMAL) 12/02/16 13:50 PT 13.9 SECONDS (9.5-11.5) H 12/02/16 13:50 INR 1.32 (0.5-1.4) 12/02/16 13:50 PTT (Actin FS) 27.1 SECONDS (26.0-38.0) 12/02/16 13:50 Sodium 134 mEq/L (136-145) L 12/05/16 05:26 Potassium 3.5 mEq/L (3.5-5.1) 12/05/16 05:26 Chloride 104 mEq/L (98-107) 12/05/16 05:26 Carbon Dioxide 25.4 mEq/L (21.0-31.0) 12/05/16 05:26 Anion Gap 8.1 (7.0-16.0) 12/05/16 05:26 BUN 7 mg/dL (7-25) 12/05/16 05:26 Creatinine 0.5 mg/dL (0.7-1.3) L 12/05/16 05:26 Est GFR ( Amer) > 60.0 ml/min (>90) 12/05/16 05:26 Est GFR (Non-Af Amer) > 60.0 ml/min 12/05/16 05:26 BUN/Creatinine Ratio 14.0 12/05/16 05:26 Glucose 125 mg/dL (70-105) H 12/05/16 05:26 POC Glucose 90 MG/DL (70 - 105) 12/02/16 17:19 Whole Bld Lactic Acid 0.79 mmol/L (0.60-1.99) 12/02/16 13:50 Calcium 7.8 mg/dL (8.6-10.3) L 12/05/16 05:26 Total Bilirubin 0.4 mg/dL (0.3-1.0) 12/05/16 05:26 AST 37 U/L (13-39) 12/05/16 05:26 ALT 30 U/L (7-52) 12/05/16 05:26 Alkaline Phosphatase 63 U/L (34-104) 12/05/16 05:26 Troponin I < 0.01 ng/mL (0.01-0.05) L 12/02/16 13:50 Total Protein 6.2 gm/dL (6.0-8.3) 12/05/16 05:26 Albumin 2.5 gm/dL (4.2-5.5) L 12/05/16 05:26 Globulin 3.7 gm/dL 12/05/16 05:26 Albumin/Globulin Ratio 0.7 (1.0-1.8) L 12/05/16 05:26 Triglycerides 104 mg/dL (<150) 12/02/16 13:50 Cholesterol 117 mg/dL (<200) 12/02/16 13:50 LDL Cholesterol Direct 94 mg/dL (75-193) 12/02/16 13:50 HDL Cholesterol 19 mg/dL (23-92) L 12/02/16 13:50 TSH 1.59 uIU/ml (0.34-5.60) 12/02/16 13:50 Urine Source CLEAN C 12/02/16 14:30 Urine Color YELLOW 12/02/16 14:30 Urine Clarity CLEAR (CLEAR) 12/02/16 14:30 Urine pH 6.5 (4.6 - 8.0) 12/02/16 14:30 Ur Specific [place] 1.015 (1.005-1.030) 12/02/16 14:30 Urine Protein NEGATIVE mg/dL (NEGATIVE) 12/02/16 14:30 Urine Glucose (UA) NEGATIVE mg/dL (NEGATIVE) 12/02/16 14:30 Urine Ketones NEGATIVE mg/dL (NEGATIVE) 12/02/16 14:30 Urine Blood NEGATIVE (NEGATIVE) 12/02/16 14:30 Urine Nitrate NEGATIVE (NEGATIVE) 12/02/16 14:30 Urine Bilirubin NEGATIVE (NEGATIVE) 12/02/16 14:30 Urine Urobilinogen 4.0 E.U./dL (0.2 - 1.0) H 12/02/16 14:30 Ur Leukocyte Esterase NEGATIVE (NEGATIVE) 12/02/16 14:30 Urine RBC NONE SEEN /hpf (0-5) 12/02/16 14:30 Urine WBC 0-2 /hpf (0-5) 12/02/16 14:30 Ur Epithelial Cells RARE /lpf (FEW) 12/02/16 14:30 Amorphous Sediment FEW URATES (NONE SEEN) 12/02/16 14:30 Urine Bacteria OCCASIONAL /hpf (NONE SEEN) 12/02/16 14:30 Urine Opiates Screen NEGATIVE (NEGATIVE) 12/02/16 14:30 Urine Methadone Screen NEGATIVE (NEGATIVE) 12/02/16 14:30 Ur Barbiturates Screen NEGATIVE (NEGATIVE) 12/02/16 14:30 Ur Tricyclics Screen NEGATIVE (NEGATIVE) 12/02/16 14:30 Ur Phencyclidine Scrn NEGATIVE (NEGATIVE) 12/02/16 14:30 Amphetamines Screen NEGATIVE (NEGATIVE) 12/02/16 14:30 U Methamphetamines Scrn NEGATIVE (NEGATIVE) 12/02/16 14:30 U Benzodiazepines Scrn NEGATIVE (NEGATIVE) 12/02/16 14:30 U Cocaine Metab Screen NEGATIVE (NEGATIVE) 12/02/16 14:30 U Cannabinoids Screen NEGATIVE (NEGATIVE) 12/02/16 14:30 RPR NONREACTIVE (NONREACTIVE) 12/02/16 13:50 Blood Type A POSITIVE 12/03/16 06:00 Antibody Screen NEGATIVE 12/03/16 06:00 - Physical Exam Vitals and I&O: Vital Signs Temp 98.6 F 12/05/16 07:32 Pulse 86 12/05/16 07:32 Resp 17 12/05/16 07:32 BP 105/63 12/05/16 07:32 Pulse Ox 99 12/05/16 07:32 Intake & Output 12/04/16 12/05/16 12/05/16 18:59 06:59 18:59 Intake Total 1000 740 Output Total 0 Balance 1000 740 Weight (lbs) 54.431 kg 56.019 kg Intake: Intake, IV Amount 1000 D5-0.9%Ns 1,000 ml @ 50 1000 mls/hr IV .Q20H [facility] Rx#: [id number] Oral 740 Output: Urine/Stool Mix 0 Other: # Voids 3 # Bowel Movements 0 2 Stool Characteristics Soft Soft Active Medications: Current Medications Acetaminophen/Hydrocodone Bitart ([place] 5mg/325mg) 1 tab PO Q8H PRN PRN Reason: Anesthesia Stop: 01/31/17 18:56 Last Admin: 12/04/16 16:42 Dose: 1 tab Dextrose/Sodium Chloride (D5-0.9%Ns) 1,000 mls @ 50 mls/hr IV .Q20H [facility] Stop: 01/31/17 18:59 Last Admin: 12/04/16 21:15 Dose: 50 mls/hr Levofloxacin (Levaquin Pb) 750 mg in 150 mls @ 100 mls/hr IV Q24HR [facility] Stop: 02/02/17 08:59 Last Admin: 12/04/16 12:00 Dose: 100 mls/hr Lactobacillus Rhamnosus (Culturelle) 1 each PO DAILY [facility] Stop: 02/03/17 08:59 Miscellaneous (Probiotic Screen) 1 ea MC PRN PRN PRN Reason: PROTOCOL Stop: 02/02/17 15:37 Ondansetron HCl (Zofran) 4 mg IV UD PRN PRN Reason: Nausea / Vomiting Stop: 02/01/17 11:33 General: Alert, Oriented x3, No acute distress HEENT: Atraumatic, PERRLA, EOMI Neck: Supple, JVD Cardiovascular: Regular rate, Normal S1, Normal S2 Lungs: Clear to auscultation Abdomen: Bowel sounds Extremities: no Clubbing, no Cyanosis, no Edema Neurological: Normal gait - Procedures Procedures: Procedures Procedure Code Date PRP I/CELENA INIT BLOCK >5 YR 98666 12/02/16 SUPPLEMENT BI INGUINAL REGION WITH SYNTH SUB, OPEN APPROACH [id number] 12/02/16 Assessment/Plan - Problem List Patient Problems: All Active Problems LEFT LOWER ABDOMINAL PAIN (Acute) - Assessment Assessment: Current Active Problems Problem Status Onset LEFT LOWER ABDOMINAL PAIN Acute abdominal pain secondary to incarcerated hernia s/p bilateral inguinal hernia repair h/o smoking .... advised to quit smoking. PNA/bronchitis ... on levoquin 750mg IV. repeat CBC. Will order albuterol breathing treatment. hypokalemia ... improved. will add Kdur 20meq x 1, repeat bmp tomorrow. - Plan Plan: abdominal pain secondary to incarcerated hernia s/p bilateral inguinal hernia repair leukocytosis...on IV levoquin hypokalemia ... improved. Nutritional Asmnt/Malnutr-PDOC - Dietary Evaluation Malnutrition Findings (Please click <Entered> for more info): Nutritional Asmnt/Malnutrition Start: 12/04/16 16: 58 Text: Status: Complete Freq: Document 12/04/16 16:58 UN (Rec: 12/04/16 17:08 TAMAR [id number]) Nutritional Asmnt/Malnutrition Patient General Information Nutritional Screening High Risk Screening Diagnosis Abdominal pain, leukocytosis, hypokalemia Pertinent Medical Hx/Surgical Hx No pertinent medical hx. Subjective Information 51 year old male from home. repair of inguinal hernia. 12/03 night ordered regular dinner. Spoke to pt sitting upright in bed, pt was pleasant. Pt stated had 50% dinner last night, 100% breakfast today. Pt denied GI discomforts, denied N/V, stated the food is good. Pt with moost teeth missing, denied difficulties chewing/ swallowing. Pt report UBW 145lb, EMR weight 120lb, pt denied recent weight changes. Pt appeared lean with mild wasting to chest. Encouraged pt to gain weight, pt disagreed with plan. Current Diet Order/ Nutrition Support Regular Pertinent Medications D5-0.9%ns, [place] Pertinent Labs Reviewed. Nutritional Hx/Data Height 1.73 m Height (Calculated Centimeters) 172.7 Current Weight (lbs) 54.431 kg Weight (Calculated Kilograms) 54.4 Weight (Calculated Grams) 79549.1 Usual body Weight (lbs) 145 [place] Body Weight 154 Recent Weight Change No Weight Status Underweight GI Symptoms Food Allergies No Skin Integrity/Comment: [place] 19. Skin intact. Estimated Nutritional Goals Calories/Kcals/Kg IBW 154lb/70kg Kcals Calculated 1750-2100kcal (25-30kcal/kg) Protein Calculated 70g (1g/kg) Fluid: ml 1750-2100ml (1ml/kcal) Nutritional Problem 1. Problem Problem Underweight related to Etiology unknown, energy imbalance aeb Signs/Symptoms: BMI <18.5, midl wasting to chest, overall lean Intervention/Recommendation Comments 1. Continue with current diet order. Avg PO intake is adequate. 2. Discussed weights. Recommended pt to gain weight, explained underweight status and benefits of muscle and fat stores. Pt disagreed with plan. Expected Outcomes/Goals Expected Outcomes/Goals 1. PO intake to meet at least 75% of estimated nutritnioal needs.
[2016-12-05 08:37] LABS: BAND NEUTROPHILE 2 % (0-10); NEUTROPHILS 89 % (40-80); TOTAL CELLS COUNTED 100
[2016-12-05] MEDS: Levofloxacin 750mg/150mL 750 MG/150 ML BAG IV SCH (09:34)
[2016-12-05] MEDS: Lactobacillus Rhamnosus 10 Billion CFU Capsule PO SCH (15:21)
[2016-12-05] MEDS: D5-0.9%NS 1,000 ML IV SCH (17:46)
[2016-12-06 06:27] LABS: % NEUTROPHILS 81.7 % (40.0-80.0)
[2016-12-06 06:32] LABS: % BASOPHILS 0.4 % (0.0-2.0); % EOSINOPHILS 1.9 % (0.0-5.0); % LYMPHOCYTES 7.4 % (20.0-50.0); % MONOCYTES 8.6 % (2.0-10.0); HEMATOCRIT 36.6 % (41.0-60); HEMOGLOBIN 12.5 gm/dL (12-16); MEAN CELL VOLUME 89.1 fl (80-99); MEAN CORPUSCULAR HEMOGLOBIN 30.5 pg (26.0-30.0); MEAN CORPUSCULAR HGB CONC 34.3 pg (28.0-36.0); MEAN PLATELET VOLUME 8.8 fl; NEUTROPHILE ABSOLUTE 12.5 Th/cmm (1.8-8.0); PLATELET COUNT 289 Th/cmm (150-400); RED CELL DISTRIBUTION WIDTH 13.3 % (11.5-20.0)
[2016-12-06 06:45] LABS: WHITE BLOOD COUNT 15.3 Th/cmm (4.8-10.8)
[2016-12-06 06:52] LABS: ANION GAP 7.2 (7.0-16.0); BUN - UREA NITROGEN 5 mg/dL (7-25); BUN/CREATININE RATIO 12.5; CALCIUM SERUM 7.9 mg/dL (8.6-10.3); CARBON DIOXIDE 26.5 mEq/L (21.0-31.0); CHLORIDE 104 mEq/L (98-107); CREATININE - SERUM 0.4 mg/dL (0.7-1.3); GLUCOSE 120 mg/dL (70-105); POTASSIUM SERUM 3.7 mEq/L (3.5-5.1); SODIUM SERUM 134 mEq/L (136-145)
--- NOTE | 2016-12-06 08:06 | History & Physical ---
ADMIT DATE: 12/06/2016 CHIEF COMPLAINT: Anxiety. HISTORY OF PRESENT ILLNESS: The patient was admitted to the hospital with incarcerated hernia. The patient said that . The patient said that his father and is having issues and problems with his family. He denies any feeling of depression, but he said he has been stressed out and feeling depressed. PAST PSYCHIATRIC HISTORY: The patient "not sure." PAST MEDICAL HISTORY: Incarcerated hernia. SOCIAL HISTORY: The patient is single, never and has no children. He lives by himself. The patient denies any history of drug use, but he said that he drinks alcohol "every now and then." He denies any legal issues. Smokes about 1 pack of cigarettes per day. MENTAL STATUS EXAM: The patient appears older than his stated age. Anxious. Flat affect. Mood not depressed nor elated. Thought processes are mainly goal directed. The patient denies auditory or visual hallucinations or delusions. The patient denies suicidal or homicidal ideations. The patient is alert and oriented to time, place, person, and situation. Intact immediate, recent and remote memories. Fair insight and judgment. He seems to be of above average intelligence based on his verbal ability. ASSESSMENT AND PRIMARY DIAGNOSIS: Generalized anxiety disorder. TREATMENT PLAN: We will start the patient on Lexapro 5 mg everyday and we will adjust the dose. Also, we will work on his ineffective coping. The patient is not suicidal or homicidal, and he is to continue his treatment as an outpatient after his discharge. Thanks to Dr. Cee and we will follow with you. [facility]# [id number]
--- NOTE | 2016-12-06 08:37 | General Progress Note ---
Subjective - Review of Systems Service Date: 12/06/16 Subjective: Awake,alert,afebrile. no acute distress. POD#2 S/P bilateral inguinal hernia repair. Patient has no new complaints. Had two bowel movements yesterday. wants to go home. Objective - Results Result Diagrams: 12/06/16 06:05 12/06/16 06:05 Recent Labs: Laboratory Last Values WBC 15.3 Th/cmm (4.8-10.8) H 12/06/16 06:05 RBC 4.10 Mil/cmm (4.30-5.70) L 12/06/16 06:05 Hgb 12.5 gm/dL (12-16) 12/06/16 06:05 Hct 36.6 % (41.0-60) L 12/06/16 06:05 MCV 89.1 fl (80-99) 12/06/16 06:05 MCH 30.5 pg (26.0-30.0) H 12/06/16 06:05 MCHC Differential 34.3 pg (28.0-36.0) 12/06/16 06:05 RDW 13.3 % (11.5-20.0) 12/06/16 06:05 Plt Count 289 Th/cmm (150-400) 12/06/16 06:05 MPV 8.8 fl 12/06/16 06:05 Neutrophils % 81.7 % (40.0-80.0) H 12/06/16 06:05 Band Neutrophils % 2 % (0-10) 12/05/16 05:26 Lymphocytes % 7.4 % (20.0-50.0) L 12/06/16 06:05 Monocytes % 8.6 % (2.0-10.0) 12/06/16 06:05 Eosinophils % 1.9 % (0.0-5.0) 12/06/16 06:05 Basophils % 0.4 % (0.0-2.0) 12/06/16 06:05 Neutrophils (Manual) 89 % (40-80) H 12/05/16 05:26 Lymphocytes 6 % (20-50) L 12/05/16 05:26 Monocytes 3 % (2-10) 12/05/16 05:26 Eosinophils 1 % (0-5) 12/04/16 05:25 Platelet Estimate ADEQUATE (NORMAL) 12/02/16 13:50 PT 13.9 SECONDS (9.5-11.5) H 12/02/16 13:50 INR 1.32 (0.5-1.4) 12/02/16 13:50 PTT (Actin FS) 27.1 SECONDS (26.0-38.0) 12/02/16 13:50 Sodium 134 mEq/L (136-145) L 12/06/16 06:05 Potassium 3.7 mEq/L (3.5-5.1) 12/06/16 06:05 Chloride 104 mEq/L (98-107) 12/06/16 06:05 Carbon Dioxide 26.5 mEq/L (21.0-31.0) 12/06/16 06:05 Anion Gap 7.2 (7.0-16.0) 12/06/16 06:05 BUN 5 mg/dL (7-25) L 12/06/16 06:05 Creatinine 0.4 mg/dL (0.7-1.3) L 12/06/16 06:05 Est GFR ( Amer) > 60.0 ml/min (>90) 12/06/16 06:05 Est GFR (Non-Af Amer) > 60.0 ml/min 12/06/16 06:05 BUN/Creatinine Ratio 12.5 12/06/16 06:05 Glucose 120 mg/dL (70-105) H 12/06/16 06:05 POC Glucose 90 MG/DL (70 - 105) 12/02/16 17:19 Whole Bld Lactic Acid 0.79 mmol/L (0.60-1.99) 12/02/16 13:50 Calcium 7.9 mg/dL (8.6-10.3) L 12/06/16 06:05 Total Bilirubin 0.4 mg/dL (0.3-1.0) 12/05/16 05:26 AST 37 U/L (13-39) 12/05/16 05:26 ALT 30 U/L (7-52) 12/05/16 05:26 Alkaline Phosphatase 63 U/L (34-104) 12/05/16 05:26 Troponin I < 0.01 ng/mL (0.01-0.05) L 12/02/16 13:50 Total Protein 6.2 gm/dL (6.0-8.3) 12/05/16 05:26 Albumin 2.5 gm/dL (4.2-5.5) L 12/05/16 05:26 Globulin 3.7 gm/dL 12/05/16 05:26 Albumin/Globulin Ratio 0.7 (1.0-1.8) L 12/05/16 05:26 Triglycerides 104 mg/dL (<150) 12/02/16 13:50 Cholesterol 117 mg/dL (<200) 12/02/16 13:50 LDL Cholesterol Direct 94 mg/dL (75-193) 12/02/16 13:50 HDL Cholesterol 19 mg/dL (23-92) L 12/02/16 13:50 TSH 1.59 uIU/ml (0.34-5.60) 12/02/16 13:50 Urine Source CLEAN C 12/02/16 14:30 Urine Color YELLOW 12/02/16 14:30 Urine Clarity CLEAR (CLEAR) 12/02/16 14:30 Urine pH 6.5 (4.6 - 8.0) 12/02/16 14:30 Ur Specific [place] 1.015 (1.005-1.030) 12/02/16 14:30 Urine Protein NEGATIVE mg/dL (NEGATIVE) 12/02/16 14:30 Urine Glucose (UA) NEGATIVE mg/dL (NEGATIVE) 12/02/16 14:30 Urine Ketones NEGATIVE mg/dL (NEGATIVE) 12/02/16 14:30 Urine Blood NEGATIVE (NEGATIVE) 12/02/16 14:30 Urine Nitrate NEGATIVE (NEGATIVE) 12/02/16 14:30 Urine Bilirubin NEGATIVE (NEGATIVE) 12/02/16 14:30 Urine Urobilinogen 4.0 E.U./dL (0.2 - 1.0) H 12/02/16 14:30 Ur Leukocyte Esterase NEGATIVE (NEGATIVE) 12/02/16 14:30 Urine RBC NONE SEEN /hpf (0-5) 12/02/16 14:30 Urine WBC 0-2 /hpf (0-5) 12/02/16 14:30 Ur Epithelial Cells RARE /lpf (FEW) 12/02/16 14:30 Amorphous Sediment FEW URATES (NONE SEEN) 12/02/16 14:30 Urine Bacteria OCCASIONAL /hpf (NONE SEEN) 12/02/16 14:30 Urine Opiates Screen NEGATIVE (NEGATIVE) 12/02/16 14:30 Urine Methadone Screen NEGATIVE (NEGATIVE) 12/02/16 14:30 Ur Barbiturates Screen NEGATIVE (NEGATIVE) 12/02/16 14:30 Ur Tricyclics Screen NEGATIVE (NEGATIVE) 12/02/16 14:30 Ur Phencyclidine Scrn NEGATIVE (NEGATIVE) 12/02/16 14:30 Amphetamines Screen NEGATIVE (NEGATIVE) 12/02/16 14:30 U Methamphetamines Scrn NEGATIVE (NEGATIVE) 12/02/16 14:30 U Benzodiazepines Scrn NEGATIVE (NEGATIVE) 12/02/16 14:30 U Cocaine Metab Screen NEGATIVE (NEGATIVE) 12/02/16 14:30 U Cannabinoids Screen NEGATIVE (NEGATIVE) 12/02/16 14:30 RPR NONREACTIVE (NONREACTIVE) 12/02/16 13:50 Blood Type A POSITIVE 12/03/16 06:00 Antibody Screen NEGATIVE 12/03/16 06:00 - Physical Exam Vitals and I&O: Vital Signs Temp 98 F 12/06/16 04:00 Pulse 89 12/06/16 04:00 Resp 19 12/06/16 04:00 BP 116/74 12/06/16 04:00 Pulse Ox 98 12/06/16 04:00 Intake & Output 12/05/16 12/06/16 12/06/16 18:59 06:59 18:59 Intake Total 1150 Balance 1150 Weight (lbs) 55.338 kg Intake: Intake, IV Amount 1150 D5-0.9%Ns 1,000 ml @ 50 1000 mls/hr IV .Q20H GERARDO Rx#: [id number] Levofloxacin 750mg/150mL 150 750 mg In 150 ml @ 100 mls/hr IV Q24HR GERARDO Rx#: [id number] Other: Stool Characteristics Soft Active Medications: Current Medications Acetaminophen/Hydrocodone Bitart ([place] 5mg/325mg) 1 tab PO Q8H PRN PRN Reason: Anesthesia Stop: 01/31/17 18:56 Last Admin: 12/04/16 16:42 Dose: 1 tab Albuterol Sulfate (Albuterol 2.5mg/3ml Neb Ud) 2.5 mg HHN Q6H PRN PRN Reason: Shortness of Breath or Wheeze Stop: 02/03/17 08:24 Escitalopram Oxalate (Lexapro) 5 mg PO DAILY GERARDO PRN Reason: Protocol Stop: 02/04/17 08:59 Dextrose/Sodium Chloride (D5-0.9%Ns) 1,000 mls @ 50 mls/hr IV .Q20H GERARDO Stop: 01/31/17 18:59 Last Admin: 12/05/16 17:46 Dose: 50 mls/hr Levofloxacin (Levaquin Pb) 750 mg in 150 mls @ 100 mls/hr IV Q24HR GERARDO Stop: 02/02/17 08:59 Last Infusion: 12/05/16 12:18 Dose: Infused Lactobacillus Rhamnosus (Culturelle) 1 each PO DAILY GERARDO Stop: 02/03/17 08:59 Last Admin: 12/05/16 15:21 Dose: 1 each Miscellaneous (Probiotic Screen) 1 ea MC PRN PRN PRN Reason: PROTOCOL Stop: 02/02/17 15:37 Ondansetron HCl (Zofran) 4 mg IV UD PRN PRN Reason: Nausea / Vomiting Stop: 02/01/17 11:33 General: Alert, Oriented x3, No acute distress HEENT: Atraumatic, PERRLA, EOMI Neck: Supple, JVD Cardiovascular: Regular rate, Normal S1, Normal S2 Lungs: Clear to auscultation Abdomen: Bowel sounds Extremities: no Clubbing, no Cyanosis, no Edema Neurological: Normal gait - Procedures Procedures: Procedures Procedure Code Date PRP I/CELENA INIT BLOCK >5 YR 21972 12/02/16 SUPPLEMENT BI INGUINAL REGION WITH SYNTH SUB, OPEN APPROACH [id number] 12/02/16 Assessment/Plan - Problem List Patient Problems: All Active Problems LEFT LOWER ABDOMINAL PAIN (Acute) - Assessment Assessment: Current Active Problems Problem Status Onset LEFT LOWER ABDOMINAL PAIN Acute abdominal pain secondary to incarcerated hernia s/p bilateral inguinal hernia repair h/o smoking .... advised to quit smoking. PNA/bronchitis ... on levoquin 750mg IV. will DC IV and change to PO ciprofloxacin #14 hypokalemia ... improved. will add Kdur 20meq x 1, repeat bmp tomorrow. improved. will dc home today. patient to follow up with his regular physician. f/u with general surgeon. patient given prescription for Ciprofloxacin. - Plan Plan: abdominal pain secondary to incarcerated hernia s/p bilateral inguinal hernia repair leukocytosis...on IV levoquin hypokalemia ... improved. Nutritional Asmnt/Malnutr-PDOC - Dietary Evaluation Malnutrition Findings (Please click <Entered> for more info): Nutritional Asmnt/Malnutrition Start: 12/04/16 16: 58 Text: Status: Complete Freq: Document 12/04/16 16:58 GSUN (Rec: 12/04/16 17:08 GSUN [id number]) Nutritional Asmnt/Malnutrition Patient General Information Nutritional Screening High Risk Screening Diagnosis Abdominal pain, leukocytosis, hypokalemia Pertinent Medical Hx/Surgical Hx No pertinent medical hx. Subjective Information 51 year old male from home. repair of inguinal hernia. 12/03 night ordered regular dinner. Spoke to pt sitting upright in bed, pt was pleasant. Pt stated had 50% dinner last night, 100% breakfast today. Pt denied GI discomforts, denied N/V, stated the food is good. Pt with moost teeth missing, denied difficulties chewing/ swallowing. Pt report UBW 145lb, EMR weight 120lb, pt denied recent weight changes. Pt appeared lean with mild wasting to chest. Encouraged pt to gain weight, pt disagreed with plan. Current Diet Order/ Nutrition Support Regular Pertinent Medications D5-0.9%ns, Culturelle, Zofran Pertinent Labs Reviewed. Nutritional Hx/Data Height 1.73 m Height (Calculated Centimeters) 172.7 Current Weight (lbs) 54.431 kg Weight (Calculated Kilograms) 54.4 Weight (Calculated Grams) 58909.1 Usual body Weight (lbs) 145 [place] Body Weight 154 Recent Weight Change No Weight Status Underweight GI Symptoms Food Allergies No Skin Integrity/Comment: [place] 19. Skin intact. Estimated Nutritional Goals Calories/Kcals/Kg IBW 154lb/70kg Kcals Calculated 1750-2100kcal (25-30kcal/kg) Protein Calculated 70g (1g/kg) Fluid: ml 1750-2100ml (1ml/kcal) Nutritional Problem 1. Problem Problem Underweight related to Etiology unknown, energy imbalance aeb Signs/Symptoms: BMI <18.5, midl wasting to chest, overall lean Intervention/Recommendation Comments 1. Continue with current diet order. Avg PO intake is adequate. 2. Discussed weights. Recommended pt to gain weight, explained underweight status and benefits of muscle and fat stores. Pt disagreed with plan. Expected Outcomes/Goals Expected Outcomes/Goals 1. PO intake to meet at least 75% of estimated nutritnioal needs.
[2016-12-06] MEDS: Lactobacillus Rhamnosus 10 Billion CFU Capsule PO SCH (08:52)
[2016-12-06] MEDS: Levofloxacin 750mg/150mL 750 MG/150 ML BAG IV SCH (08:55)
[2016-12-06] MEDS ORDERED: Escitalopram Oxalate 5 mg Tab PO SCH (09:00)
--- NOTE | 2016-12-10 19:51 | Discharge Summary ---
DATE OF DISCHARGE: 12/06/2016 PRELIMINARY DIAGNOSES: 1. Abdominal pain secondary to incarcerated hernia. 2. Leucocytosis. 3. Hypokalemia. DISCHARGE DIAGNOSES: 1. Abdominal pain secondary to incarcerated hernia, status post inguinal hernia repair. 2. Leukocytosis, now resolved. 3. Hypokalemia, now corrected. BRIEF HISTORY OF PRESENT ILLNESS: This is a 51-year-old male who presents to [facility] ER for abdominal pain for the past few days. The patient denies any nausea or vomiting. Denies any diarrhea or constipation. He states that he has had hernia in the past several months, but has not sought any medical attention. He states that he was unable to sleep last night due to the pain and has decided to come to the ER for further evaluation and treatment. While in the ER, he had some initial lab work that revealed a white count of 16,000, hemoglobin 12.8, hematocrit 37.6, and platelets 319,000. His blood work shows 1% bands with 86% neutrophils with a left shift. PT was 13.9. INR was 1.32. His Chem-7 shows sodium was noted to be low at 130, potassium was also low at 3.4, chloride 101, bicarbonate 24.8, BUN 6, creatinine 0.7, and glucose 98. The patient's AST was elevated slightly at 47. ALT was normal at 40. Alkaline phosphatase was normal at 75. UA was essentially negative. The patient also had a CT of his abdomen and pelvis while in the ER, which did reveal evidence of an inguinal hernia that appeared to be incarcerated, noted on the left side, containing part of the sigmoid colon, also revealing some distention of the colon with fecal contents noted. The patient was subsequently admitted for further evaluation and treatment. HOSPITAL COURSE: The patient was seen and evaluated by General Surgery. Please see dictated report. He underwent left inguinal hernia repair as well as the right inguinal hernia repair. The patient recovered following procedure, began to get a normal diet, and was able to have regular bowel movements afterwards, subsequently was discharged home, given a course of oral antibiotics of Cipro 500 mg twice daily for 7 days. The patient was to follow up with his regular physician as well as with the general surgeon in 2 to 3 days following discharge. The patient was advised to avoid any heavy lifting in the next few days until he sees his regular physician. [facility]# [id number]
== END 2016-12-06 12:00 | disposition home or self-care (01) | DRG 228 ==
LOC: ER 13:28 → MSI 15:41
PROVIDERS: ADMIT Family Medicine; ATTEND Family Medicine
PROC: 0YUA0JZ Supplement Bilateral Inguinal Region with Synthetic Substitute, Open Approach (ICD-10-PCS; principal; 2016-12-03)
PROC: 0YQ50ZZ Repair Right Inguinal Region, Open Approach (ICD-10-PCS; 2016-12-03)
DX: K40.30 Unilateral inguinal hernia, with obstruction, without gangrene, not specified as recurrent (principal); E44.1 Mild protein-calorie malnutrition; D18.09 Hemangioma of other sites; E87.6 Hypokalemia; D72.829 Elevated white blood cell count, unspecified; F17.210 Nicotine dependence, cigarettes, uncomplicated; K40.90 Unilateral inguinal hernia, without obstruction or gangrene, not specified as recurrent; Z68.1 Body mass index [BMI] 19.9 or less, adult; F41.1 Generalized anxiety disorder; J40 Bronchitis, not specified as acute or chronic; Z82.3 Family history of stroke; Z82.49 Family history of ischemic heart disease and other diseases of the circulatory system; Z85.3 Personal history of malignant neoplasm of breast; Z72.89 Other problems related to lifestyle
CPT/HCPCS: 36415-UA; 71010-TC; 80048-TC; 80053-TC; 80061-TC; 80307; 81001-TC; 82948-90; 83605; 84443-TC; 84484-TC; 85007-TC; 85027-TC; 85610-TC; 85730-TC; 86592-TC; 86850-TC; 86900-TC; 86901-TC; 87230-TC; 93005; 94760; 96374; J0690; J0696; J1956; J2060; J3480; J7030; J7042; Q9967; X5790; X6026; Z7610